=== PATIENT | male | born 1980 | race African-American/Black ===

== ENCOUNTER 2016-11-10 14:33 | Emergency (ER) | payer OTHER ==
[~2016-11-10] VITALS: Ht 175.3 cm; Wt 70.3 kg
[2016-11-10 14:37] VITALS: BP 130/82
[2016-11-10] MEDS ORDERED: IBUPROFEN600 MG ORAL (15:06)
[2016-11-10] MEDS ORDERED: AMOXICILLIN500 MG ORAL (15:06)
--- NOTE | 2016-11-10 15:06 | Emergency Room Report ---
History of Present Illness General Chief Complaint: Toothache Source: Patient Present Illness HPI 36 YO Male presents to the ED c/o pain, swelling, and erythema to the upper right jaw/ cheek with tooth pain where a filling fell out . x 2 days. denies fevers, or chills. Patient reports pain that was 6/10 in severity he that he described as a dull ache this a.m. Patient took 800 mg ibuprofen for pain and swelling and states that his pain has been relieved by ibuprofen. Patient reports swelling has not improved. He has also been using ice packs. He denies recent dental procedure. Denies trauma or fall. Patient reports mild discomfort with movements of the left eye but denies changes in vision or eye pain. He denies rashes or lesions. Pt states he does not see a dentist regularly as he does not have one. Denies CP, Palpitations, LOC, AMS, dizziness , Changes in Vision, Sensation, paresthesias, or a sudden severe headache. Allergies: Coded Allergies: No Known Allergies (Unverified , 11/10/16) Patient History Past Medical History: see triage record Past Surgical History: none Pertinent Family History: none Immunizations: UTD Reviewed Nursing Documentation: PMH: Agreed, PSxH: Agreed Nursing Documentation-PMH Past Medical History: No Stated History Review of Systems All Other Systems: negative except mentioned in HPI Physical Exam Vital Signs Date Time Temp Pulse Resp B/P Pulse Ox O2 Delivery O2 Flow Rate FiO2 11/10/16 14:37 98.4 76 16 130/82 99 Room Air Sp02 EP Interpretation: reviewed, normal General Appearance: no apparent distress, alert, GCS 15, non-toxic Head: normocephalic Eyes: bilateral eye EOMI, bilateral eye PERRL, bilateral eye normal inspection ENT: hearing grossly normal, normal pharynx, no angioedema, normal voice, uvula midline, moist mucus membranes, other - tooth number 12 has obvious missing filline, erythema of the surrounding gumline, no fluctuance palpated. tenderness of the surrounding gum is noted. Moderate swelling noted with erythema to the left side of the nare and nasal bridge confluent with swelling and erythema of the maxillary soft tissues of the left side of the face. Neck: full range of motion, supple/symm/no masses Respiratory: lungs clear, normal breath sounds, speaking full sentences Cardiovascular #1: regular rate, rhythm, no edema Musculoskeletal: back normal, gait/station normal, normal range of motion, non- tender Neurologic: alert, oriented x3, responsive, motor strength/tone normal, sensory intact, speech normal Psychiatric: judgement/insight normal, memory normal, mood/affect normal Skin: no rash, warm/dry, well hydrated, other - erythema noted to left maxillary area, swelling noted as well with radiation up into the left side of the nasal bridge. Lymphatic: no adenopathy Medical Decision Making PA Attestation Dr. Millard is my supervising Physician whom patient management has been discussed with. Diagnostic Impression: Primary Impression: Dental abscess ER Course Pt. presents to the ED c/o pain, swelling, and erythema to the upper right jaw/ cheek with tooth pain where a filling fell out . x 2 days. denies fevers, or chills. Ddx considered but are not limited to cellulitis, dental abscess, orbital cellulitis, d/l tooth, dental pain. trigeminal neuralgia, trauma. Vital signs: are WNL, pt. is afebrile H&PE are most consistent with dental abscess. ORDERS: none required at this time, the diagnosis is clinical ED INTERVENTIONS: -500mg Amoxicillin PO Dr. Millard also evaluated this pt. and believes he will respond well to oral abx. D/w pt. to follow up with Dentist [facility], pt. was given a list of free/reduced cost dental clinics in the area. d/w pt. to return to ED with worsening or new symptoms. DISCHARGE: At this time pt. is stable for d/c to home. Will provide printed patient care instructions, and any necessary prescriptions. Care plan and follow up instructions have been discussed with the patient prior to discharge. Last Vital Signs Date Time Temp Pulse Resp B/P Pulse Ox O2 Delivery O2 Flow Rate FiO2 11/10/16 14:37 98.4 16 130/82 99 Room Air 11/10/16 14:37 76 Disposition: HOME, SELF-CARE Scripts Ibuprofen* (MOTRIN*) 600 Mg Tablet 600 MG ORAL THREE TIMES A DAY, #30 TAB 0 Refills Prov: Beckie Barraza P.A. 11/10/16 Amoxicillin* (AMOXIL*) 500 Mg Capsule 500 MG ORAL BID for 7 Days, #14 CAP Prov: Beckie Barraza P.A. 11/10/16 Patient Instructions: Dental Abscess, [id number] Additional Instructions: Take medications as directed. Follow up with a Primary Care Provider in 3-5 days, even if your symptoms have resolved. --Please review list of primary care clinics, if you do not already have a primary care provider Return sooner to ED if new symptoms occur, or current symptoms become worse. - Please note that this Emergency Department Report was dictated using [employer] sales assistant technology software, occasionally this can lead to erroneous entry secondary to interpretation by the dictation equipment. Beckie Barraza Nov 10, 2016 15:06
[2016-11-10] MEDS ORDERED: Amoxicillin 500mg cap ORAL ONE (15:15)
[2016-11-10 15:22] VITALS: BP 130/82
== END 2016-11-10 15:22 | disposition home or self-care (01) ==
LOC: EMR 15:01
DX: K04.7 Periapical abscess without sinus (principal)
CPT/HCPCS: 99284